=== PATIENT | female | born 1990 | race Caucasian/White ===

== ENCOUNTER 2019-10-17 12:36 | Emergency (ER) | payer OTHER, SELFPAY ==
--- NOTE | 2019-10-17 12:54 | ED.URI ---
HPI - URI/Sore Throat General Chief Complaint: Upper Respiratory Infection Stated Complaint: Cough/Vomiting/Fever Time Seen by Provider: 10/17/19 13:20 Source: patient and RN notes reviewed Mode of arrival: ambulatory Limitations: no limitations History of Present Illness HPI Narrative: 29-year-old female with history of asthma presents with fever, body aches, fatigue, scratchy throat, nausea that started yesterday. Reports episodes of vomiting. Reports taking Aleve with relief of fever MD elicited complaint: fever Related Data Home Medications Medication Instructions Recorded Confirmed cyclobenzaprine 10 mg PO HS 10/17/19 10/17/19 naproxen sodium [Aleve] 440 mg PO DAILY 10/17/19 10/17/19 pregabalin [Lyrica] 75 mg PO HS 10/17/19 10/17/19 Allergies Allergy/AdvReac Type Severity Reaction Status Date / Time No Known Allergies Allergy Unverified 04/16/19 11:06 Review of Systems Review of Systems: Narrative: CONSTITUTIONAL: Denies malaise, chills, sweats, or fever. EYES: Denies visual changes, redness, or discharge. ENT: Reports rhinorrhea, congestion, scratchy throat. Denies sinus pain, otalgia. CARDIOVASCULAR: Denies chest pain, palpitations, or edema. RESPIRATORY: Reports cough. Denies dyspnea. GASTROINTESTINAL: Denies abdominal pain, nausea, vomiting, diarrhea SKIN: Denies rash or itching. MUSCULOSKELETAL: Reports myalgia. NEUROLOGIC: Denies headache. All systems reviewed & are unremarkable except as noted in HPI and below PMFSH Comments At time of signature, agree with nursing past medical, surgical, social and family history. There is no relevant family history pertinent to the presenting complaint Exam Narrative: Exam Narrative: GENERAL: Well-appearing, well-nourished, and in no acute distress. HEAD: Normocephalic EYES: PERRLA, conjunctivae clear ENT: Nares clear, turbinates edematous and erythematous, clear discharge. Mucous membranes moist. TM pearly de leon with dull light reflex bilaterally; no tragal tenderness. Oropharynx not erythematous without lesions. Tonsils not enlarged and without exudate, no drooling, no hoarseness, no trismus. NECK: Supple. No lymphadenopathy CHEST: Clear to auscultation, breath sounds equal. No wheezing, rhonchi, rales, or stridor. No respiratory distress, speaks in full sentences. HEART: Regular rate and rhythm. No murmur heard. Normal peripheral pulses. SKIN: Warm, dry, no rash. NEURO: Alert and oriented x3. PSYCH: Normal mood and affect Course Course Emergency Course: Patient is aware of diagnosis, understands and agrees to treatment plan. Anticipatory guidance given. Patient agrees to follow-up as directed and is aware of reasons to seek care at the emergency department. Portions of this record may have been created with voice recognition software Vital Signs Vital signs: Vital Signs Temperature 98.2 F 10/17/19 13:02 Pulse Rate 82 10/17/19 13:02 Respiratory Rate 18 10/17/19 13:02 Blood Pressure 121/86 10/17/19 13:02 Pulse Oximetry 99 10/17/19 13:02 Temperature 98.2 F 10/17/19 13:02 Pulse Rate 82 10/17/19 13:02 Respiratory Rate 18 10/17/19 13:02 Blood Pressure 121/86 10/17/19 13:02 Pulse Oximetry 99 10/17/19 13:02 Reviewed. MDM - URI/Sore Throat MDM Narrative Medical decision making narrative: Differential diagnosis considered: Strep pharyngitis, allergic rhinitis, upper respiratory tract infection, sinusitis, rhinosinusitis, nasopharyngitis. viral pharyngitis, otitis media, otitis externa, pneumonia, bronchitis, viral cough syndrome, viral syndrome, and influenza. Exam findings show no acute concerns or changes; patient is non-toxic appearing and is in no distress. Patient is appropriate for outpatient treatment and follow-up. Lab Data Attestation: I reviewed the patient's lab results. Labs: Influenza A Screen Negative Reference Range: Negative Influenza B Screen Negative Reference Range: Negati
[2019-10-17 13:02] VITALS: BP 121/86; PULSE 82; RESP 18; TEMP 36.8; O2SAT 99
== END 2019-10-17 13:35 | disposition home or self-care (01) ==
PROVIDERS: Emergency Provider Nurse Practitioner
DX: R05 Cough (principal); R50.9 Fever, unspecified; R11.2 Nausea with vomiting, unspecified; R09.89 Other specified symptoms and signs involving the circulatory and respiratory systems; J45.909 Unspecified asthma, uncomplicated
CPT/HCPCS: 87804; 99213; G0463

== ENCOUNTER 2022-09-29 11:06 | Emergency (ER) | payer OTHER, SELFPAY ==
--- NOTE | 2022-09-29 11:11 | ED.URI ---
HPI - URI/Sore Throat General Chief Complaint: Upper Respiratory Infection Stated Complaint: sore throat/ear pain Time Seen by Provider: 09/29/22 11:30 Source: patient Mode of arrival: ambulatory Limitations: no limitations History of Present Illness HPI Narrative: Rayna is a 32-year-old female patient presenting to the clinic today with complaints of sore throat and bilateral ear pain 1-2 days. She reports she just finished up around of Augmentin approximately 2 weeks ago for a sinus infection. She was also given prescription for methylprednisone and an albuterol inhaler just in case the congestion settled her chest per her PCP. She denies any fever or chills. Her son is also sick with the sore throat in being seen in the clinic today. MD elicited complaint: sore throat, nasal congestion and other (Ear pain) Related Data Home Medications Medication Instructions Recorded Confirmed pregabalin 75 mg capsule (Lyrica) 75 mg PO HS 10/17/19 10/17/19 Allergies Allergy/AdvReac Type Severity Reaction Status Date / Time No Known Allergies Allergy Verified 09/29/22 11:34 Review of Systems Review of Systems: Pertinent positives per HPI. Patient denies any fever, chills, rash, headache, visual changes, dizziness, cough, shortness of breath, chest pain, palpitations, nausea, vomiting, diarrhea, constipation, abdominal pain, or any urinary issues. PMFSH Comments At the time of my signature, I reviewed and agree with the nursing past medical, surgical, social, and family history. There is no relevant family history pertinent to the patient complaint. Exam Narrative: General: Well-developed, well nourished, in no apparent distress Head: Normocephalic, atraumatic Eyes: Pupils equally round and reactive to light bilaterally, EOM intact, sclera and conjunctive clear, no discharge, lids normal Ears: TMs intact and clear, ear canals clear, no drainage, grossly hearing normal. Nose: Nares patent, clear nasal discharge, no inflammation, maxillary sinus tenderness. Mouth: Oral pharynx without lesions or masses, good dentition, MMM. Postnasal drip, oropharynx red Neck: Supple, trachea midline, no enlargement of anterior or posterior cervical nodes, no thyroid masses or goiter palpable. Cardio: Regular rate and rhythm, s1 and s2 normal, no murmur appreciated. Resp: Clear to auscultation bilaterally, no rhonchi, rales, wheezing or rubs Course Course Emergency Course: Portions of this record may have been created with voice recognition software. Level of Care: Express Care Visit Vital Signs Vital signs: Vital Signs Temperature 36.8 C 09/29/22 11:24 Pulse Rate 75 09/29/22 11:24 Respiratory Rate 16 09/29/22 11:24 Blood Pressure 120/75 09/29/22 11:24 Pulse Oximetry 100 09/29/22 11:24 Oxygen Delivery Room Air 09/29/22 11:24 Temperature 36.8 C 09/29/22 11:24 Pulse Rate 75 09/29/22 11:24 Respiratory Rate 16 09/29/22 11:24 Blood Pressure 120/75 09/29/22 11:24 Pulse Oximetry 100 09/29/22 11:24 Oxygen Delivery Room Air 09/29/22 11:24 Vital signs reviewed MDM - URI/Sore Throat MDM Narrative Medical decision making narrative: At the time of visit patient is resting comfortably on the exam table. Strep screen was obtained and was negative in the clinic today. Recommend taking methylprednisone prescription as discussed. Supportive measures were discussed with the patient she voiced understanding of discharge instructions agrees to treatment plan Differential Diagnosis Differential diagnosis: Likely upper respiratory infection, otitis media, sinusitis, viral infection, bronchitis, influenza, pharyngitis and other (COVID) Discharge Plan Discharge Clinical Impression: Upper respiratory infection, Pharyngitis, Acute dysfunction of both eustachian tubes Patient Disposition: Home, Self-Care Condition: Stable Instructions: Antibiotic Form, Pharyngitis (ED), Upper Respiratory Inf
[2022-09-29 11:24] VITALS: BP 120/75; PULSE 75; RESP 16; TEMP 36.8; O2SAT 100
== END 2022-09-29 12:09 | disposition home or self-care (01) ==
PROVIDERS: Emergency Provider Nurse Practitioner Family; PCP Internal Medicine
DX: J06.9 Acute upper respiratory infection, unspecified (principal); J02.9 Acute pharyngitis, unspecified; H69.93 Unspecified Eustachian tube disorder, bilateral
CPT/HCPCS: 87081; 87880; 99213; G0463

== ENCOUNTER 2023-11-05 13:47 | Emergency (ER) | payer MEDICAID, SELFPAY ==
[2023-11-05 13:54] VITALS: BP 114/73; PULSE 75; RESP 14; TEMP 37.1; O2SAT 100
--- NOTE | 2023-11-05 14:25 | ED.URI ---
HPI - URI/Sore Throat General Chief Complaint: Upper Respiratory Infection Stated Complaint: sore throat Time Seen by Provider: 11/05/23 14:25 Source: patient, RN notes reviewed and old records reviewed Mode of arrival: ambulatory Limitations: no limitations History of Present Illness HPI Narrative: 33 year old female who presents to [facility] with complaints of swollen tonsils since last week with increase pain to throat since yesterday reports some ear pain and also some chills. Patient reports no known fevers, or body aches, has been taking Tylenol and Ibuprofen for her symptoms. 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 [employer]in[employer] elicited complaint: sore throat and other (ear pain and chills) Onset (ago): day(s) (swollen tonsils 4-5 days with pain for 2 days) Severity: moderate Treatments prior to arrival: acetaminophen and ibuprofen Related Data Home Medications Medication Instructions Recorded Confirmed pregabalin 75 mg capsule (Lyrica) 75 mg PO HS 10/17/19 10/17/19 Allergies Allergy/AdvReac Type Severity Reaction Status Date / Time No Known Allergies Allergy Verified 09/29/22 11:34 Review of Systems Review of Systems: CONSTITUTIONAL: reports malaise, chills,no sweats, or fever. EYES: Denies visual changes, redness, or discharge. ENT: Reports rhinorrhea, congestion,no sinus pain,positive otalgia and positive sore throat. CARDIOVASCULAR: Denies chest pain, palpitations, or edema. RESPIRATORY: Reports no cough.? Denies dyspnea. GASTROINTESTINAL: Denies abdominal pain, nausea, vomiting, diarrhea SKIN: Denies rash or itching. MUSCULOSKELETAL: Denies myalgia. NEUROLOGIC: Denies headache. All systems reviewed & are unremarkable except as noted in HPI and below [facility] Past Medical History Medical History (Updated 11/06/23 @ 14:23 by Rosie Adkins NP) Asthma Breast abscess right Depression Surgical History Surgical History (Updated 11/06/23 @ 14:18 by Rosie Adkins NP) H/O tubal ligation Previous section Family History Family History (Updated 11/06/23 @ 14:22 by Rosie Adkins NP) Mother Lupus Social History Social History (Updated 11/06/23 @ 14:22 by Rosie Adkins NP) Smoking status: Former smoker Alcohol intake: current Alcohol use details: social Substance use type: does not use Living arrangements: with family Gender identity (if verbalized by the patient): Female Comments At time of signature, agree with nursing past medical, surgical, social and family history. There is no relevant family history pertinent to the presenting complaint Exam Narrative: GENERAL: Well-appearing, well-nourished, and in no acute distress. HEAD: Normocephalic EYES: PERRLA, conjunctivae clear ENT: Nares clear, turbinates edematous and erythematous, clear discharge. Mucous membranes moist. TM pearly de leon with dull light reflex bilaterally; no tragal tenderness. Oropharynx erythematous without lesions. Tonsils red enlarged right >Left and without exudate, no drooling, no hoarseness, no trismus, uvula midline. NECK: Supple. lymphadenopathy CHEST: Clear to auscultation, breath sounds equal. No wheezing, rhonchi, rales, or stridor. No respiratory distress, speaks in full sentences.no cough noted,SAO2 100% on room air HEART: Regular rate and rhythm. No murmur heard. SKIN: Warm, dry, no rash. NEURO: Alert and oriented x3. PSYCH: Normal mood and affect Course Course Emergency Course: Patient is aware of diagnosis, understands and agrees to treatment plan.? Anticipatory guidance given.? Patient agrees to follow-up as directed and is aware of reasons to seek care at the emergency department. Portions of this record may have been created with voice recognition software Level of Care: Express Care Visit Vital Signs Vital signs: Vital Signs Temperature 37.1 C 11/05/23 13:54 Pulse Rate
== END 2023-11-05 14:43 | disposition home or self-care (01) ==
PROVIDERS: Emergency Provider Registered Nurse
DX: J02.0 Streptococcal pharyngitis (principal); Z87.891 Personal history of nicotine dependence; J45.909 Unspecified asthma, uncomplicated
CPT/HCPCS: 87880; 99213; G0463

== ENCOUNTER 2024-12-18 09:09 | Emergency (ER) | payer OTHER, SELFPAY ==
[2024-12-18 09:23] VITALS: BP 130/93; PULSE 71; RESP 16; TEMP 36.7; O2SAT 100
--- OUTSIDE RECORDS SUMMARY | 2024-12-18 09:29 | XMS_ITS | Referral Summary ---
Author Organization [facility] Address [address] [place] [address] Care Team Providers Care Upsetting Machine Operator Name Role Phone Unknown, Notinfile Primary Care Provider Unavail able Radha Zuñiga MD Unavailable [phone] No, Physician Unavailable Allergies No known active allergies Medications dicyclomine (BENTYL) 20 mg tablet Take 1 tablet (20 mg total) by mouth 2 (two) times a day. 20 tablet 8 Active hydrocortisone- pramoxine (PROCTOFOAM-HC) rectal foamIndications :Pruritus Ani Insert 1 applicator into the rectum 2 (two) times a day 10 g 3 Active Additional Information Patient not taking.Reported on 02/11/2024 witch Fady (TUCKS) 50 % pads, medicatedIndica tions:Hemorrhoi ds Apply topically 3 (three) times a day 48 each 3 Active Additional Information Patient not taking.Reported on 02/11/2024 Active Problems No known active problems Social History Tobacco Use Types Packs/Day Years Used Date Smoking Tobacco: Every Day Personal Safety Answer Date Recorded Getting School Help Needed Not on file 10/20 Comments No Sex and Gender Information Value Date Recorded Sex Assigned at Not on file 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 Gender Identity Not on file Sexual Orientation Not on file Last Filed Vital Signs Vital Sign Reading Time Taken Comments Blood Pressure 150/94 02/11/2024 10:52 AM CDT Pulse 99 02/11/2024 10:52 AM CDT Temperature 36.8 C (98.2 F) 02/11/2024 10:52 AM CDT Respiratory Rate 16 02/11/2024 10:52 AM CDT Oxygen Saturation 98% 02/11/2024 10:52 AM CDT Inhaled Oxygen Concentration - - Weight 79.4 kg (175 lb) 02/11/2024 10:52 AM CDT Height 165.1 cm (5' 5 ) 02/11/2024 10:52 AM CDT Body Mass Index 29.12 02/11/2024 10:52 AM CDT Plan of Treatment Not on file Insurance [facility] Care Teams Upsetting Machine Operator Relationship Specialty Start Date End Date Unknown, Notinfile PCP - General 02/11/24 Radha Zuñiga MD 02/11/24 No, Physician 08/19/19
--- OUTSIDE RECORDS SUMMARY | 2024-12-18 09:29 | XMS_ITS | Encounter Summary ---
Author Organization [facility] Address [address] [place] [address] Phone Care Team Providers Care Animal Sticker Name Role Phone Radha Zuñiga MD Primary Care Provider [phone] Oscar De La Rosa MD Unavailable Encounter Details Date Type Department Care Team (Late st Contact Info) Description 12/09/2020 Transcribe Orders [facility] Admitting [address] [place] [address] [place] [address] [place] [address] Social History Tobacco Use Types Packs/Day Years Used Date Smoking Tobacco: Every Day Cigarettes 1 12 Smokeless Tobacco: Never Alcohol Use Standard Drinks/Week Comments No 0 (1 standard drink = 0.6 oz pur e alcohol) Comments No Sex and Gender Information Value Date Recorded Sex Assigned at Not on file 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 No / Unsure 12/09/2020 3:04 PM CDT documented as of this encounter Plan of Treatment Upcoming Encounters Date Type Department Care Team (Latest Contact Info) Description 12/29/2024 8:10 AM CDT [facility] [address] [place] [address] Oscar De La Rosa MD [address] [address] 12/29/2024 8:10 AM CDT - 12/29/2024 9:10 AM CDT [facility] [address] [place] [address] Oscar De La Rosa MD #[address] [address] LAPAROSCOPIC CHOLECYSTECTOMY, POSSIBLE OPEN 01/14/2025 8:30 AM CDT Office Visit [facility] - General Surgery [facility] [address] [address] Oscar De La Rosa MD [address] [address] Scheduled Procedures Name Priority Associated Diagnoses Date/Ti me LAPAROSCOPIC CHOLECYSTECTOMY WITH / WITHOUT CHOLANGIOGRAMS NON FUNCTIONING GALLBLADDER 12/29/2024 8:10 AM CDT documented as of this encounter Visit Diagnoses Not on filedocumented in this encounter Care Teams Animal Sticker Relationship Specialty Start Date End Date Radha Zuñiga MD [address] [place] [address] [facility] [address] [place] [address] PCP - General Internal Medicine 07/30/19 Oscar De La Rosa MD #[address] [address] Consulting Physician Colon and Rectal Surgery 12/12/24 documented as of this encounter
--- OUTSIDE RECORDS SUMMARY | 2024-12-18 09:29 | XMS_ITS | Clinical Summary ---
Author Organization [facility] Address [address] [place] [address] Care Team Providers Care Child & Adolescent Psychiatrist Name Role Phone Unknown, Notinfile Primary Care Provider Unavail able Radha Zuñiga MD Unavailable [phone] No, Physician Unavailable Allergies No known active [...] 02/11/2024 Active Problems No known active problems Surgical History Surgery Date Site/Laterality Comments CERVICAL FUSION 08/05/2019 C4-C6 Medical History Medical History Date Comments Asthma Anxiety Social History Tobacco Use Types Packs/Day Years Used Date Smoking Tobacco: Every Day Personal Safety Answer Date Recorded Getting School Help Needed Not on file 10/20 Comments No Sex and Gender Information Value Date Recorded Sex Assigned at Not on file 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 Gender Identity Not on file Sexual Orientation Not on file Obstetrics History Last Filed Vital Signs Vital Sign Reading [...] 02/11/2024 10:52 AM CDT Plan of Treatment Health Maintenance Due Date Last Done Comments Cervical Cancer Screening 1990 Depression Screening 1990 Hepatitis C Screening 1990 Varicella Vaccines (1 of 2 - 13+ 2-dose series) 2003 Hepatitis B Screening 2008 Regular Well Visit/Exam 18-64 2008 Pneumococcal vaccine <65 (1 of 2 - PCV) 2009 DTaP/Tdap/Td Vaccine (3 - Td or Tdap) 11/13/2023 11/12/2013, 08/20/2010 Covid-19 Vaccine (2 - 2023-2 5 season) 2024 03/18/2021 Influenza Vaccine (Season Ended) 2025 07/07/2019 HPV Vaccines Aged Out No longer eligi ble based on patient's age to complete this topic Insurance [place] [address] Care Teams Child & Adolescent Psychiatrist Relationship Specialty Start Date End Date Unknown, Notinfile PCP - General 02/11/24 Radha Zuñiga MD 02/11/24 No, Physician 08/19/19
--- OUTSIDE RECORDS SUMMARY | 2024-12-18 09:29 | XMS_ITS | Clinical Summary ---
Author Organization [facility] Address [address] [place] [address] Phone Care Team Providers Care Wood Furniture Assembler Name Role Phone Radha Zuñiga MD Primary Care Provider [phone] Oscar De La Rosa MD Unavailable Allergies Active Allergy Reactions Criticality Noted Date Comments Docusate Vomiting 12/10/2024 Medications ondansetron (ZOFRAN) 4 MG Tablet Take 1 Tab by mouth every 8 hours as needed for Nausea - 1st line. 10 Tab 8 Active Additional Information Patient not taking.Reported on 11/13/2021 albuterol 108 (90 Base) MCG/ACT Aerosol Solution take 2 Puffs by inhalation every 6 hours as needed for Wheezing. 1 Inhaler 8 Active Additional Information Patient taking differently:2 Puff Inhalation EVERY 6 HOURS PRN, Wheezing,ONLY USES WHEN SICK, Reported on 12/16/2024 traMADol (ULTRAM) 50 MG Tablet Take 1 Tab by mouth every 6 hours as needed for Severe pain. 20 Tab 9 Active Additional Information Patient not taking.Reported on 11/13/2021 methylPREDNISol one (MEDROL DOSPACK) 4 MG Tablet Therapy Pack See product package insert for dosing schedule 21 Tab 9 Active Additional Information Patient not taking.Reported on 11/13/2021 ketorolac (TORADOL) 10 MG Tablet Take 1 Tab by mouth every 6 hours as needed for Mild or more severe pain. 15 Tab 9 Active Additional Information Patient not taking.Reported on 11/13/2021 pregabalin (LYRICA) 150 MG Capsule TAKE 1 CAPSULE BY MOUTH EVERYDAY AT BEDTIME 2 Active Cyclobenzaprine HCl (CYCLOBENZAPRIN E 20 TD) nightly as needed. Active HYDROcodone-nicholas taminophen (NORCO) 5-325 MG TabletIndicatio ns:Gallbladder attack Take 1-2 Tablets by mouth every 4 hours as needed for Severe pain. 12 Tablet 5 Active Ibuprofen (MOTRIN PO) Take 800 mg by mouth daily. Per Dr. De La Rosa, no need to hold prior to surgery on 12/29/2024 Active Active Problems No known active problems Encounters Date Type Department Care Team Description 12/16/2024 9:00 AM CDT [facility] Visit [facility] - [facility] - [place] [address] [address] Oscar De La Rosa MD Nonfunctioning gallbladder (Primary Dx); Abdominal pain, right upper quadrant; Chronic constipation Discharge Disposition: Discharged to home or Selfcare 12/16/2024 Travel 12/10/2024 7:35 AM CDT - 12/10/2024 12:13 PM CDT Emergency [facility] Emergency [address] [place] [address] Roby Iverson MD Gallbladder attack Discharge Disposition: Discharged to home or Selfcare 12/10/2024 Travel from Last 3 Months Family History Medical History Relation Name Comments Autoimmune Disease Father Fibro Hypertension Father No Known Problems Half-Brother Breast Cancer Half-Sister 1 Cancer Half-Sister 1 Asthma Half-Sister 2 Bipolar Disorder Half-Sister 2 No Known Problems Maternal Grandfather Diabetes Maternal Grandmother Heart Disease Maternal Grandmother Anxiety disorder Mother Asthma Mother Depression Mother High Cholesterol Mother Cancer Paternal Grandfather Diabetes Paternal Grandfather Heart Disease Paternal Grandfather Hypertension Paternal Grandfather Lung Cancer Paternal Grandfather Diabetes Paternal Grandmother Hypertension Paternal Grandmother No Known Problems Son 1 No Known Problems Son 2 Premature Son 3 Premature Son 4 Premature Son 5 Relation Name Status Comments Father Alive Half-Brother Alive Half-Sister 1 Alive Half-Sister 2 Alive Maternal Grandfather Maternal Grandmother Alive Mother Alive Paternal Grandfather Paternal Grandmother Alive Son 1 Alive Son 2 Alive Son 3 Alive Son 4 Alive Son 5 Alive Social History Tobacco Use Types Packs/Day Years Used Date Smoking Tobacco: Every Day Cigarettes 1 20.3 Started: 2004 Smokeless Tobacco: Never Alcohol Use Standard Drinks/Week Comments Yes 12 (1 standard drink = 0.6 oz pu re alcohol) 1-2 twisted tea a night Sexually Active Control Partners Comments Yes Male Comments No Sex and Gender Information Value Date Recorded Sex Assigned at Not on file 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 Gender Identity Not on file Sexual Orientation Not on file Last Filed Vital Signs Vital Sign Reading Time Taken Comments Blood Pressure 124/74 12/16/2024 9:03 AM CDT Pulse 82 12/16/2024 9:03 AM CDT Temperature 36.4 C (97.6 F) 12/16/2024 9:03 AM CDT Respiratory Rate 21 12/10/2024 12:00 PM CDT Oxygen Saturation 98% 12/16/2024 9:03 AM CDT Inhaled Oxygen Concentration - - Weight 80.3 kg (177 lb) 12/16/2024 1:37 PM CDT Height 165.1 cm (5' 5 ) 12/16/2024 1:37 PM CDT Body Mass Index 29.45 12/16/2024 1:37 PM CDT Plan of Treatment Upcoming Encounters Date Type Department Care Team (Latest Contact Info) Description 12/29/2024 8:10 AM CDT Hospital Encounter [facility] Per[facility] [address] [place] [address] Oscar De La Rosa MD [address] [address] 12/29/2024 8:10 AM CDT - 12/29/2024 9:10 AM CDT Surgery [facility] [address] [address] [place] [address] Oscar De La Rosa MD [address] [address] LAPAROSCOPIC CHOLECYSTECTOMY, POSSIBLE OPEN 01/14/2025 8:30 AM CDT [facility] Visit [facility] - [facility] [address] [address] Oscar De La Rosa MD [address] [address] Scheduled Procedures Name Priority Associated Diagnoses Date/Ti me LAPAROSCOPIC CHOLECYSTECTOMY WITH / WITHOUT CHOLANGIOGRAMS NON FUNCTIONING GALLBLADDER 12/29/2024 8:10 AM CDT Health Maintenance Due Date Last Done Comments Hepatitis B Immunization (1 of 3 - 19+ 3-dose series) 2009 Pap Smear 2011 Cervical Cancer Screening (CCS) 2020 HPV/Cotest 2020 SARS-COV-2 Immunization ( season) 2024 03/18/2021 Respiratory Syncytial Virus (RSV) Immunization (Adult) (1 - 1-dose 75+ series) 2065 DTaP/Tdap/Td Immunization Discontinued 2013, 08/20/2010 TdaP Immunization Completed 11/12/2013, 08/20/2010 Hepatitis C Virus (HCV) Screening Completed 07/30/2019 Influenza Immunization Completed , 10/13/2022, 07/07/2019 Pneumococcal Immunization Combined Completed 07/11/2024 Meningococcal Immunization (ACWY) Aged Out No longer eligible based on patient's age to complete this topic Rotavirus Immunization Aged Out No lo nger eligible based on patient's age to complete this topic Procedures Procedure Name Priority Date/Time Associated Diagnosis Comments US ABDOMEN LIMITED LEVEL 3 THREE ORGAN Stat with Interpretation 12/10/2024 10:50 AM CDT CBC WITH AUTO DIFFERENTIAL STAT 12/10/2024 7:55 AM CDT LIPASE STAT 12/10/2024 7:55 AM CDT CMP (COMPREHENSIVE METABOLIC PANEL) STAT 12/10/2024 7:55 AM CDT COMPLETE BLOOD COUNT (CBC) WITH DIFF STAT 12/10/2024 7:55 AM CDT POCT URINE HCG () STAT 12/10/2024 7:53 AM CDT URINALYSIS REFLEX IF INDICATED BY ABNORMAL RESULTS STAT 12/10/2024 7:47 AM CDT CULTURE, URINE STAT 12/10/2024 7:47 AM CDT HEPATITIS PANEL ACUTE (AHP) Routine 07/30/2019 11:27 AM AVIONICS SYSTEM ENGINEER Cervical spondylitis with radiculitis (HCC) Spinal instability, unspecified spinal region Spinal stenosis of cervicothoracic region from Last 3 Months or Most Recently Relevant to Health Maintenance Results * US ABDOMEN LIMITED LEVEL 3 THREE ORGAN (12/10/2024 10:50 AM CDT) Anatomical Region Laterality Modality Abdomen N/A Ultrasound 12/10/2024 11:3 7 AM CDT Impressions 12/10/2024 11:40 AM CDT IMPRESSION: No evidence of an acute abnormality. Gallbladder polyp 0.8 cm. 1 year ultrasound follow-up recommended. Narrative 12/10/2024 11:40 AM CDT EXAM DESCRIPTION: US ABDOMEN LIMITED LEVEL 3 THREE ORGAN REASON FOR STUDY: Right upper quadrant pain for 1 week. TECHNIQUE: Ultrasound of the right upper quadrant of the abdomen was performed with grayscale and color Doppler. COMPARISON: None. FINDINGS: PANCREAS: Visualized portions of the pancreas are within normal limits. Portions of the pancreatic body and tail are obscured due to bowel gas. LIVER: The liver is normal in echogenicity. Liver measures 15.9 cm. No focal hepatic lesions are seen. Antegrade direction of flow shown in the main portal vein. GALLBLADDER: No echogenic gallstones, gallbladder wall thickening, or pericholecystic fluid. No positive sonographic White's sign reported. Echogenic structure along the gallbladder characteristic of a polyp 0.6 x 0.8 x 0.5 cm. BILIARY: There is no intrahepatic biliary ductal dilatation. The common bile duct measures 0.4 cm in diameter. RIGHT KIDNEY: Right kidney is 10.8 cm in length. There is no hydronephrosis. The echogenicity is normal. OTHER: No other significant finding. THIS IS AN ELECTRONICALLY VERIFIED FINAL REPORT 12/10/2024 11:37 AM - Electronically signed by Jim Segovia M.D. CH: RUSTAM Report ID: [id number] Reading Location: [id number] Procedure Note Jim Segovia Jr., MD - 12/10/2024 EXAM DESCRIPTION: US ABDOMEN LIMITED LEVEL 3 THREE ORGAN REASON FOR STUDY: Right upper quadrant pain for 1 week. TECHNIQUE: Ultrasound of the right upper quadrant of the abdomen was performed with grayscale and color Doppler. COMPARISON: None. FINDINGS: PANCREAS: Visualized portions of the pancreas are within normal limits. Portions of the pancreatic body and tail are obscured due to bowel gas. LIVER: The liver is normal in echogenicity. Liver measures 15.9 cm. No focal hepatic lesions are seen. Antegrade direction of flow shown in the main portal vein. GALLBLADDER: No echogenic gallstones, gallbladder wall thickening, or pericholecystic fluid. No positive sonographic White's sign reported. Echogenic structure along the gallbladder characteristic of a polyp 0.6 x 0.8 x 0.5 cm. BILIARY: There is no intrahepatic biliary ductal dilatation. The common bile duct measures 0.4 cm in diameter. RIGHT KIDNEY: Right kidney is 10.8 cm in length. There is no hydronephrosis. The echogenicity is normal. OTHER: No other significant finding. THIS IS AN ELECTRONICALLY VERIFIED FINAL REPORT 12/10/2024 11:37 AM - Electronically signed by Jim Segovia M.D. CH: RUSTAM Report ID: [id number] Reading Location: [id number] IMPRESSION: No evidence of an acute abnormality. Gallbladder polyp 0.8 cm. 1 year ultrasound follow-up recommended. Roby Iverson MD [facility] [place] ORDERABLES Final Re sult * (ABNORMAL) CBC with Auto Differential (12/10/2024 7:55 AM CDT) [facility] WBC 8.63 4.00 - 12.00 10(3)/mcL 12/10/2024 8:18 AM CDT [facility] RBC 4.48 3.80 - 5.30 10(6)/mcL 12/10/2024 8:18 AM CDT [facility] HEMOGLOBIN (HGB) 13.9 12.0 - 15.8 g/dL 12/10/2024 8:18 AM CDT [facility] HEMATOCRIT (HCT) 40.7 36.0 - 47.0 % 12/10/2024 8:18 AM CDT [facility] MCV 90.8 82.0 - 96.0 fL 12/10/2024 8:18 AM CDT [facility] MCH 31.0 26.0 - 34.0 pg 12/10/2024 8:18 AM CDT [facility] MCHC 34.2 31.0 - 36.0 g/dL 12/10/2024 8:18 AM CDT [facility] PLATELET COUNT 254 140 - 440 10(3)/mcL 12/10/2024 8:18 AM CDT [facility] RDW 12.3 11.8 - 15.5 % 12/10/2024 8:18 AM CDT [facility] MPV 10.1 9.7 - 12.4 fL 12/10/2024 8:18 AM CDT [facility] NEUTROPHILS 46.2(L) 47.0 - 73.0 % 12/10/2024 8:18 AM CDT [facility] LYMPHOCYTES 43.3(H) 18.0 - 42.0 % 12/10/2024 8:18 AM CDT [facility] MONOCYTES 6.7 4.0 - 12.0 % 12/10/2024 8:18 AM CDT [facility] EOSINOPHILS 3.5 0.0 - 5.0 % 12/10/2024 8:18 AM CDT [facility] BASOPHILS 0.3 0.0 - 1.0 % 12/10/2024 8:18 AM CDT [facility] ABSOLUTE NEUTROPHILS 3.98 1.60 - 7.70 10(3)/mcL 12/10/2024 8:18 AM CDT [facility] ABSOLUTE LYMPHOCYTES 3.74(H) 1.30 - 3.20 10(3)/mcL 12/10/2024 8:18 AM CDT [facility] ABSOLUTE MONOCYTES 0.58 0.20 - 1.00 10(3)/mcL 12/10/2024 8:18 AM CDT [facility] ABSOLUTE EOSINOPHIL 0.30 0.00 - 0.40 10(3)/[facility] 12/10/2024 8:18 AM CDT [facility] ABSOLUTE BASOPHILS 0.03 0.00 - 0.10 10(3)/[facility] 12/10/2024 8:18 AM CDT [facility] NRBC PER 100 WBC 0 12/11/19 8:18 AM CDT [facility] Blood Venipuncture / Unknown 12/10/2024 7:55 AM CDT 12/10/2024 8:16 AM CDT Roby Iverson MD HEMATOLOGY ORDERABLES Di l Result [facility] [address] [place] [address] * Lipase (12/10/2024 7:55 AM CDT) LIPASE 26 8 - 78 U/L 12/10/2024 8:46 AM CDT [facility] Blood Venipuncture / Unknown 12/10/2024 7:55 AM CDT 12/10/2024 8:16 AM CDT Roby Iverson MD CHEMISTRY ORDERABLES Final Result [facility] [address] [place] [address] * (ABNORMAL) CMP (12/10/2024 7:55 AM CDT) SODIUM 140 136 - 145 mmol/L 12/10/2024 8:46 AM CDT [facility] POTASSIUM 4.1 3.5 - 5.1 mmol/L 12/10/2024 8:46 AM CDT [facility] CHLORIDE 111(H) 98 - 107 mmol/L 12/10/2024 8:46 AM CDT [facility] CO2, VENOUS 22 22 - 30 mmol/L 12/10/2024 8:46 AM CDT [facility] ANION GAP 11.1 <18.0 mmol/L 12/10/2024 8:46 AM CDT [facility] GLUCOSE 95 70 - 99 mg/dL 12/10/2024 8:46 AM CDT [facility] BUN 13 5 - 18 mg/dL 12/10/2024 8:46 AM CDT [facility] CREATININE, BLOOD 0.79 0.60 - 1.00 mg/dL 12/10/2024 8:46 AM CDT [facility] BUN/CREATININE RATIO 16 12 - 20 ratio 12/10/2024 8:46 AM CDT [facility] TOTAL PROTEIN 6.5 6.0 - 8.0 g/dL 12/10/2024 8:46 AM CDT [facility] ALBUMIN 3.9 3.5 - 5.0 g/dL 12/10/2024 8:46 AM CDT [facility] A/G RATIO 1.5 1.0 - 2.2 12/10/2024 8:46 AM CDT [facility] CALCIUM 8.4(L) 8.7 - 10.5 mg/dL 12/10/2024 8:46 AM CDT [facility] T BILI 0.3 0.2 - 1.2 mg/dL 12/10/2024 8:46 AM CDT [facility] SGOT (AST) 24 <43 U/L 12/10/2024 8:46 AM CDT [facility] SGPT (ALT) 23 <56 U/L 12/10/2024 8:46 AM CDT [facility] ALKALINE PHOSPHATASE 45 40 - 150 U/L 12/10/2024 8:46 AM CDT [facility] GFR, ESTIMATED >60 >=60 12/10/2024 8:46 AM CDT [facility] Comment: Creatinine Clearance is the preferred criteria for selecting drug dose adjustments in renally impaired patients. The GFR is provided as additional pertinent clinical information. GFR is reported in mL/min/1.73 sq m. Calculation based on the Chronic Kidney Disease Epidemiology Collaboration (CKD- EPI) equation refit without adjustment for race. GFR, EST. >60 >=60 025 8:46 AM CDT [facility] GFR, EST. NONAFRICAN >60 >=60 12/10/2024 8:46 AM CDT [facility] Blood Venipuncture / Unknown 12/10/2024 7:55 AM CDT 12/10/2024 8:16 AM CDT Roby Iverson MD CHEMISTRY ORDERABLES Final Result [facility] [address] [place] [address] * POCT Urine HCG () (12/10/2024 7:53 AM CDT) POC URINE Negative POC URINE CONTROL Blending Operator Pass Urine 12/10/2024 7:53 AM CDT Roby Iverson MD POINT OF CARE TESTING (MAN UAL) Final Result * (ABNORMAL) Urinalysis w/ Reflex (12/10/2024 7:47 AM CDT) SPECIFIC GRAVITY 1.010 1.003 - 1.030 12/10/2024 8:54 AM CDT [facility] URINE PH 7.0 5.0 - 9.0 12/10/2024 8:54 AM CDT [facility] WBC ESTERASE 100 /uL(A) Negative 12/10/2024 8:54 AM CDT [facility] NITRITE Negative Negative 12/10/2024 8:54 AM CDT [facility] PROTEIN, RANDOM URINE 15 mg/dL(A) Negative 12/10/2024 8:54 AM CDT [facility] URINE GLUCOSE, QUAL Negative Negative 12/10/2024 8:54 AM CDT [facility] URINE KETONES Negative Negative 12/10/2024 8:54 AM CDT [facility] UROBILINOGEN Normal Normal mg/dL 12/10/2024 8:54 AM CDT [facility] URINE BLOOD 25 /uL(A) Negative kiesha/ul 12/10/2024 8:54 AM CDT [facility] URINALYSIS COLOR Yellow 12/11/19 8:54 AM CDT [facility] URINALYSIS CLARITY Clear 12/10/2024 8:54 AM CDT [facility] WBC (Urine) 6-10(A) Negative, 0-5 /hpf 12/10/2024 8:54 AM CDT [facility] URINE RBC'S 0-2 Negative, 0-2 /hpf 12/10/2024 8:54 AM CDT [facility] EPITHELIAL CELLS Large amount squamous /lpf 12/10/2024 8:54 AM CDT [facility] BACTERIA, URINE Few(A) Negative /hpf 12/10/2024 8:54 AM CDT [facility] Urine URINE SPECIMEN / Unknown Non-Phlebotomy Collection / Unknown 12/10/2024 7:47 AM CDT 12/10/2024 7:58 AM CDT Roby Iverson MD URINE ORDERABLES Final Res ult [facility] [address] [place] [address] * Culture, Urine (12/10/2024 7:47 AM CDT) CULTURE RESULTS Mixed Growth of One or More Distal Urethral Contaminants 12/11/2024 10:56 AM CDT [facility] Urine URINE SPECIMEN / Unknown Non-Phlebotomy Collection / Unknown 12/10/2024 7:47 AM CDT 12/10/2024 7:58 AM CDT Roby Iverson MD MICROBIOLOGY - GENERAL ORD ERABLES Final Result [facility] [address] [place] [address], [place] * HEPATITIS PANEL ACUTE (AHP) (07/30/2019 11:27 AM AVIONICS SYSTEM ENGINEER) Pathologist [facility] HEPATITIS A IGM ANTIBODY NON DETECTED NON DETECTED 07/30/2019 9:33 PM AVIONICS SYSTEM ENGINEER [facility] Comment: IGM Antibodies to HAV not detected. Does not exclude early acute or recovered HAV infection. HEP B CORE AB (IGM) NON DETECTED NON DETECTED 07/30/2019 9:33 PM AVIONICS SYSTEM ENGINEER [facility] Comment:IGM anti-HBC not det ected. Does not exclude the possibility of exposure to or infection with HBV. HEPATITIS B SURFACE ANTIGEN NON DETECTED NON DETECTED 07/30/2019 9:33 PM AVIONICS SYSTEM ENGINEER [facility] Comment:A nonreactive test r esult does not exclude the possibility of exposure to or infection with Hepatitis B virus. A nonreactive test result in individuals with prior exposure to hepatitis B may be due to antigen levels below the detection limit of this assay or lack of antigen reactivity to the antibodies in this assay. hepatitis C antibody 0.09 <1 S/CO 07/30/2019 9:33 PM AVIONICS SYSTEM ENGINEER [facility] Comment: Signal/Cutoff ratio < 0.79 is Nondetected Signal/Cutoff ratio 0.80-0.99 is Grayzone Signal/Cutoff ratio > 0.99 is Detected Supplemental assays are recommended if signal/cutoff ratio is >/=1.00. Signal/cutoff ratio result >/= 5.00 is 97% predictive of positivity for recombinant immunoblot assay (RIBA) and will be reported to the [place] Department of Public Health as required. Blood specimen (specimen) Venipuncture / Unknown 07/30/2019 11:27 AM AVIONICS SYSTEM ENGINEER 07/30/2019 12:38 PM AVIONICS SYSTEM ENGINEER us Isauro Christine MD HEMATOLOGY ORDERABLES Final Re sult [facility] [address] [place] [address], [place] from Last 3 Months or Most Recently Relevant to Health Maintenance Insurance MEDICAID [facility] [facility] Care Teams Wood Furniture Assembler Relationship Specialty Start Date End Date Radha Zuñiga MD [address] [place] [address] [facility] [address] [facility] [place] [address] PCP - General Internal Medicine 07/30/19 Oscar De La Rosa MD #2 [facility] [address] [place] [address] Consulting Physician Colon and Rectal Surgery 12/12/24
[2024-12-18 10:19] LABS: EDSTREPNEGPOS1 Negative (Negative)
--- NOTE | 2024-12-18 10:49 | ED.URI ---
HPI - URI/Sore Throat General Chief Complaint: Upper Respiratory Infection Stated Complaint: Sore Throat Time Seen by Provider: 12/18/24 09:45 Source: patient and RN notes reviewed Mode of arrival: ambulatory Limitations: no limitations History of Present Illness HPI Narrative: 34-year-old female presents [facility] complaining of a sore throat for 1 day. Patient denies any upper respiratory symptoms. Patient denies any fevers, body aches, chills. Patient states she is going to have a gallbladder surgery on December 29 and wants to make sure she does not have strep throat. Related Data Home Medications ?Medication ?Instructions ?Recorded ?Confirmed ?Last Taken ?Type hydrocodone 5 mg-acetaminophen 325 tablet 12/18/24 Unknown History mg tablet Allergies Allergy/AdvReac Type Severity Reaction Status Date / Time docusate (From Colace) AdvReac Mild Nausea and Verified 12/18/24 09:37 Vomiting Review of Systems Review of Systems: CONSTITUTIONAL: Denies fever, chills, or sweats. EYES: Denies visual changes, redness, or discharge. ENT: Denies rhinorrhea, congestion, difficulty swallowing, or otalgia. Positive for sore throat CARDIOVASCULAR: Denies chest pain, palpitations, or edema. RESPIRATORY: Denies cough or dyspnea. GASTROINTESTINAL: Denies abdominal pain, nausea, vomiting, or diarrhea. GENITOURINARY: Denies dysuria or hematuria. SKIN: Denies rash or itching. MUSCULOSKELETAL: Denies back pain, joint pain, or myalgia. NEUROLOGIC: Denies headache, numbness, or weakness. PSYCHIATRIC: Denies anxiety or depression. All other systems reviewed are negative, except as documented in HPI. [facility] Past Medical History Medical History Breast abscess right Depression Asthma Surgical History Surgical History H/O tubal ligation Previous section Family History Family History Mother Lupus Social History Social History Smoking status: Former smoker Alcohol intake: current Alcohol use details: social Substance use type: does not use Living arrangements: with family Gender identity (if verbalized by the patient): Female Comments At the time of my signature, I reviewed and agree with the nursing past medical, surgical, social, and family history. There is no relevant family history pertinent to the patient complaint. Exam Narrative: GENERAL: This is a well-nourished, well-developed adult, in no apparent distress. They are non ill-appearing, nontoxic appearing. HEAD: normocephalic, atraumatic. EYES: Sclera clear/white. Conjunctiva normal. Vision is grossly intact. Extraocular movements intact EARS: External ears normal, auditory canals clear and without drainage, TMs normal without perforation. Hearing grossly intact. NOSE: External nose normal with no obvious nasal discharge, nasal turbinates without redness, no rhinorrhea. THROAT: Mucous membranes moist, posterior pharynx erythemic without swelling. No exudate. Postnasal drip present. Uvula midline. NECK: Neck supple, non-tender without lymphadenopathy, masses or thyromegaly. CARDIOVASCULAR: Regular rate and rhythm without murmurs, gallops, or rubs. RESPIRATORY: Clear to auscultation. Breath sounds equal bilaterally. No wheezes, rales, or rhonchi. SKIN: warm, Dry, intact with no suspicious lesions or rash, good texture and turgor. NEURO: awake, alert, and oriented to person, place and time. There were no obvious focal neurologic abnormalities. EXTREMITIES: No joint tenderness, effusion, or edema noted. BACK: Nontender without deformity Course Course Emergency Course: Portions of this record may have been created with voice recognition software Level of Care: Express Care Visit Vital Signs Vital signs: Vital Signs Temperature 98.0 F 12/18/24 09:23 Pulse Rate 71 12/18/24 09:23 Respiratory Rate 16 12/18/24 09:23 Blood Pressure 130/93 H 12/18/24 09:23 Pulse Oximetry 100 12/18/24 09:23 Oxygen Delivery Room Air 12/18/24 09:23 Temperature 98.0 F 12/18/24 09:23 Pulse Rate 71 12/18/24 09:23 Respiratory Rate 16 12/18/24 09:23 Blood Pressure 130/93 H 12/18/24 09:23 Pulse Oximetry 100 12/18/24 09:23 Oxygen Delivery Room Air 12/18/24 09:23 Reviewed MDM - URI/Sore Throat MDM Narrative Medical decision making narrative: Rapid strep negative. Throat culture pending. Symptoms likely are a viral pharyngitis. Discussed physical exam findings. Advised supportive measures and signs/symptoms to go to the ER. Pt is appropriate for outpt treatment and f/u. Differential Diagnosis Differential diagnosis: Likely upper respiratory infection, viral infection and pharyngitis Lab Data Attestation: I reviewed the patient's lab results. Labs: Lab Results 12/18/24 Range/Units 09:20 POC Grp A Strep Screen Negative (Negative) Critical Care Time Critical Care Time Critical Care Time: No Discharge Plan Discharge Clinical Impression: Pharyngitis Qualifiers: Pharyngitis/tonsillitis etiology: unspecified etiology Qualified Code(s): J02.9 - Acute pharyngitis, unspecified Patient Disposition: Home Condition: Stable Instructions: Pharyngitis (ED) Additional Instructions: Your rapid strep swab was negative today at [facility]. You will be notified in a few days if the culture comes back positive for strep, and appropriate antibiotics will be called in for you at that time. Your symptoms are likely due to a viral illness, which is not treated with antibiotics. Viral symptoms can be present for up to 10-14 days. Take Tylenol or ibuprofen for fever or pain. Rest and stay hydrated. Follow up with your PCP in 5 days if symptoms are not improving. Go to the ER immediately if you develop difficulty breathing or swallowing Patient Language: Spanish Prescriptions: No Action hydrocodone-acetaminophen 5-325 mg tablet Follow-up/Referrals: PHYSICIAN,WEDDING DAY COORDINATOR [Primary Care Provider] - Time of Disposition: 09:58
== END 2024-12-18 10:00 | disposition home or self-care (01) ==
DX: J02.9 Acute pharyngitis, unspecified (principal); Z87.891 Personal history of nicotine dependence; J45.909 Unspecified asthma, uncomplicated
CPT/HCPCS: 87081; 87880; 99213; G0463